=== PATIENT | female | born 1970 | race American Indian/Alaskan Native ===

== ENCOUNTER 2017-04-21 10:37 | Outpatient (CLI) | payer OTHER ==
--- NOTE | 2017-04-21 11:04 | Mammography Report ---
RIGHT DIGITAL DIAGNOSTIC MAMMOGRAM : 04/21/17 10:37:00 CLINICAL: Recalled for asymmetry. COMPARISON:03/31/17 screening FINDINGS: ML and spot compression MLO and CC views were performed and are negative. IMPRESSION: Negative Mammogram. BI-RADS CATEGORY: 1 -- Negative RECOMMENDATION: Routine mammographic screening in one year. ACR BI-RADS MAMMOGRAPHIC CODES: 0 = Needs additional imaging evaluation; 1 = Negative; 2 = Benign; 3 = Probably benign; 4 = Suspicious; 5 = Malignant; 6 = Known biopsy-proven malignancy COMMENT: 1. Dense breast tissue, i.e., adenosis, fibrocystic changes, etc., may obscure an underlying neoplasm. 2. Approximately 10% of cancers are not detected with mammography. 3. A negative mammography report should not delay biopsy if a clinically suspicious mass is present. COMMENT: Patient follow-up letters are generated via our [employer] application.
== END 2017-04-21 10:38 | disposition home or self-care (01) ==
LOC: SPVWC 10:37
PROVIDERS: ATTEND Family Medicine
DX: R92.8 Other abnormal and inconclusive findings on diagnostic imaging of breast (principal)
CPT/HCPCS: G0206-RT

== ENCOUNTER 2019-04-25 15:12 | Outpatient (CLI) | payer OTHER ==
--- NOTE | 2019-04-26 12:14 | Mammography Report ---
DIGITAL SCREENING MAMMOGRAM WITH CAD, 04/25/2019 INDICATION: Routine screening mammography. TECHNIQUE: Digital bilateral 2D mammography was obtained in the craniocaudal and mediolateral obliq ue projections. This examination was interpreted with the benefit of Computer-Aided Detection analysi s. COMPARISON: 04/23/2018 and mammograms going back to 12/07/2012 FINDINGS: Breast Density: The breasts are heterogeneously dense, which may obscure small masses. Right focal asymmetry with architectural distortion requires additional imaging. No suspicious calcif ications of the right breast. There is no evidence of dominant mass, suspicious calcifications or arc hitectural distortion in the left breast. IMPRESSION: Right focal asymmetry and architectural distortion requiring additional imaging. Recommen d recall for right lateral, rolled CC and spot compression MLO and CC views and right breast ultrasou nd if needed. Follow up recommendation: Special View: Spot Category 0: Incomplete. Needs additional imaging evaluation and/or prior mammograms for comparison. A "normal" or negative report should not discourage follow up or biopsy of a clinically significant f inding. A written summary of these findings will be mailed to the patient. The patient will be entered into a mammography reporting system which will generate a reminder letter for the patient's next appointmen t at the appropriate interval. The [employer] recommends yearly mammograms starting at age 40 and continuing as l josias as a woman is in good health. Breast MRI is recommended for women with an approximate 20-25% or greater lifetime risk of breast cancer, including women with a strong family history of breast or ova marcia cancer or who have been treated for Hodgkin's disease. Signer Name: Rahul Dillon MD Signed: 04/26/2019 12:09 PM Workstation Name: [id number]
== END 2019-04-25 15:13 | disposition home or self-care (01) ==
LOC: SPVWC 15:12
PROVIDERS: ATTEND Family Medicine
DX: Z12.31 Encounter for screening mammogram for malignant neoplasm of breast (principal)
CPT/HCPCS: 77067

== ENCOUNTER 2019-05-11 13:56 | Outpatient (CLI) | payer OTHER ==
--- NOTE | 2019-05-11 14:45 | Mammography Report ---
DIGITAL RIGHT DIAGNOSTIC MAMMOGRAM WITH CAD, 05/11/2019 INDICATION: ABNORMAL MAMMOGRAM. Recalled to evaluate right asymmetries. TECHNIQUE: Digital right mammographic imaging was performed. Spot compression views were obtained. This examination was interpreted with the benefit of Computer-aided Detection analysis. COMPARISON: 04/25/2019 Breast Density: The breasts are heterogeneously dense, which may obscure small masses. FINDINGS: Lateral medial, rolled CC and spot compression MLO and CC views were performed and are nega tive. Satisfactory effacement of asymmetries. IMPRESSION: No mammographic evidence of malignancy. Follow up recommendation: Routine BI-RADS Category 1: Negative. A "normal" or negative report should not discourage follow up or biopsy of a clinically significant f inding. A written summary of these findings will be mailed to the patient. The patient will be entered into a mammography reporting system which will generate a reminder letter for the patient's next appointmen t at the appropriate interval. According to the [employer], yearly mammograms are recommended starting at age 40 and continuing as long as a woman is in good health. Breast MRI is recommended for women with an florence roximately 20-25% or greater lifetime risk of breast cancer, including women with a strong family his tory of breast or ovarian cancer and women who have been treated for Hodgkin's disease. Signer Name: Rahul Dillon MD Signed: 05/11/2019 2:41 PM Workstation Name: [id number]
== END 2019-05-11 13:57 | disposition home or self-care (01) ==
LOC: SPVWC 13:56
PROVIDERS: ATTEND Family Medicine
DX: R92.8 Other abnormal and inconclusive findings on diagnostic imaging of breast (principal)

== ENCOUNTER 2020-05-02 10:56 | Outpatient (CLI) | payer OTHER ==
--- NOTE | 2020-05-02 11:56 | Mammography Report ---
BILATERAL DIGITAL SCREENING MAMMOGRAM WITH CAD HISTORY: 3D SCREENING MAMMO TECHNIQUE: Routine digital mammographic imaging performed. Tomosynthesis images were acquired and re viewed. This examination was interpreted with the benefit of Computer-aided Detection analysis. COMPARISON: 05/11/2019, 04/25/2019, 04/23/2018. FINDINGS: Breast Density: scattered fibroglandular appearance of the breast tissue. Digital CC and MLO views demonstrate no mammographic evidence of malignancy. IMPRESSION: No mammographic evidence of malignancy. If the clinical examination remains stable, recommend bilate ral mammogram in approximately one year. BIRADS 1: Negative. FURTHER INFORMATION: According to the [employer], yearly mammograms are recommend ed starting at age 40 and continuing as long as a woman is in good health. Clinical Breast Exams shou ld be part of a periodic health exam-about every 3 years for women in their 20s and 30s and every yea r for women 40 and over. Breast self exam is an option for women starting in their 20s. Any breast ch kelby noted on a breast self exam should be reported promptly to the patient's healthcare provider. Br east MRI is recommended for women with an approximately 20-25% or greater lifetime risk of breast can cer, including women with a strong family history of breast or ovarian cancer and women who have been treated for Hodgkin's disease. A negative Mammography report should not discourage follow up or biopsy of a clinically significant f inding and/or abnormality. Dense breast tissue may obscure small neoplasms. The patient will be entered into a reminder system with a target due date for the next screening mamm ogram. Signer Name: Jules Schafer MD Signed: 05/02/2020 11:51 AM Workstation Name: [id number]
== END 2020-05-02 10:57 | disposition home or self-care (01) ==
LOC: SPVWC 10:56
PROVIDERS: ATTEND Family Medicine
DX: Z12.31 Encounter for screening mammogram for malignant neoplasm of breast (principal)
CPT/HCPCS: 77063; 77067

== ENCOUNTER 2020-07-16 13:23 | Outpatient (CLI) | payer OTHER ==
--- NOTE | 2020-07-16 15:58 | Mammography Report ---
RIGHT DIGITAL DIAGNOSTIC MAMMOGRAM WITH CAD CONVENTIONAL, 07/16/2020 RIGHT LIMITED BREAST ULTRASOUND CLINICAL INFORMATION / INDICATION: Pain around right nipple. TECHNIQUE: Digital right mammographic imaging was performed. Limited ultrasound was performed. This e xamination was interpreted with the benefit of Computer-Aided Detection (CAD) analysis. COMPARISON: 05/02/2020, 05/11/2019, 04/25/2019 FINDINGS: Breast Density: There are scattered areas of fibroglandular density. MAMMOGRAPHIC FINDINGS: No dominant mass, suspicious calcifications, or architectural distortion in th e right breast. ULTRASOUND FINDINGS: Targeted ultrasound evaluation was performed of the area of interest. In the 3 :00 retroareolar position at the level of the nipple is a single mildly dilated duct measuring up to 4 mm without a distinct intraductal lesion or other significant abnormality. IMPRESSION: No mammographic or sonographic evidence of malignancy. Follow up recommendation: Routine yearly BI-RADS Category 2: Benign. A "normal" or negative report should not discourage follow up or biopsy of a clinically significant f inding. A written summary of these findings will be mailed to the patient. The patient will be entered into a mammography reporting system which will generate a reminder letter for the patient's next appointmen t at the appropriate interval. According to the [employer], yearly mammograms are recommended starting at age 40 and continuing as long as a woman is in good health. Breast MRI is recommended for women with an florence roximately 20-25% or greater lifetime risk of breast cancer, including women with a strong family his tory of breast or ovarian cancer and women who have been treated for Hodgkin's disease. Signer Name: Hiram Walters MD Signed: 07/16/2020 3:54 PM Workstation Name: [id number]
== END 2020-07-16 13:24 | disposition home or self-care (01) ==
LOC: MAMMO 13:23
PROVIDERS: ATTEND Family Medicine
DX: R92.2 Inconclusive mammogram (principal)

== ENCOUNTER 2021-09-25 14:17 | Outpatient (CLI) | payer OTHER | END 2021-09-25 14:18 | disposition home or self-care (01) | LOC: SPVWC 14:17 | PROVIDERS: ATTEND Family Medicine | DX: Z12.31 Encounter for screening mammogram for malignant neoplasm of breast (principal) | CPT/HCPCS: 77063; 77067 ==